=== PATIENT | female | born 1980 | race Caucasian/White ===

== ENCOUNTER 2016-11-24 09:00 | Emergency (ER) | payer MEDICAID ==
[2016-11-24 09:21] VITALS: BP 126/66
[2016-11-24] MEDS ORDERED: KETOROLAC 60 MG/2 ML VIAL IM STA (09:38)
[2016-11-24] MEDS ORDERED: LIDOCAINE PATCH 5% TOP STA (09:38)
--- NOTE | 2016-11-24 09:42 | ED Physician Documentation ---
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 Review of Systems Constitutional: denies: Fever GI: reports: Abdominal Pain (mild LLQ - before back pain) : denies: Now EGA (denies, LMP just finished) Musculoskeletal: reports: Back pain Neurologic: denies: Focal weakness, Numbness Endocrine: denies: Easy bruising / bleeding Immunocompromised: denies: Immunocompromised PD PAST MEDICAL HISTORY - Past Medical History Cardiovascular: None Respiratory: None Neuro: None Endocrine/Autoimmune: None GI: None 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 HEENT: None Psych: None Musculoskeletal: None Derm: None Other Past Medical History: PID - Past Surgical History Past Surgical History: No - Present Medications Home Medications: Ambulatory Orders Medication Instructions Recorded Confirmed Cyclobenzaprine [Flexeril] 10 mg PO TID PRN #20 tablet 11/24/16 Ibuprofen [Motrin] 400 mg PO Q6H PRN #30 tablet 11/24/16 Lidocaine Patch 5% [Lidoderm Patch] 1 each TOP DAILY PRN #10 patch 11/24/16 - Allergies Allergies/Adverse Reactions: Allergies Allergy/AdvReac Type Severity Reaction Status Date / Time No Known Drug Allergies Allergy Verified 08/05/13 13:37 - Social History Does the pt smoke?: No Smoking Status: Never smoker Does the pt drink ETOH?: Yes Does the pt have substance abuse?: No - POLST Patient has POLST: No PD ED PE NORMAL - Vitals Vital signs reviewed: Yes - Cardiac Cardiac: RRR - Respiratory Respiratory: No respiratory distress - Abdomen Abdomen: Soft, Non tender - Back Back: Other (no focal bony swelling warmth of TTP, soft tissue TTP to mid upper L spine with limited ROM 2/2 same) - Neuro Neuro: No motor deficit (hip flex knee ext foot dorsi plantar and great toe ext 5/5 neg SLR, denies saddle anesthesia, nl sensation, patellar DTR 2/4, no clonus ), No sensory deficit Results - Vitals Vitals: Vital Signs - 24 hr 11/24/16 09:09 Temperature 36.9 C Heart Rate 78 Respiratory 16 Rate Blood Pressure 126/66 O2 Saturation 98 Oxygen O2 Source Room air PD MEDICAL DECISION MAKING - ED course ED course: muscular back pain no focal neuro no red flags will tx symptomatically Departure - Departure Disposition: 01 Home, Self Care Clinical Impression: Back pain Qualifiers: Back pain location: low back pain Chronicity: acute Back pain laterality: midline Sciatica presence: without sciatica Qualified Code(s): M54.5 - Low back pain Condition: Good Instructions: ED Low Back Pain Injury Prescriptions: Cyclobenzaprine [Flexeril] 10 mg PO TID PRN #20 tablet PRN Reason: Spasms Ibuprofen [Motrin] 400 mg PO Q6H PRN #30 tablet PRN Reason: Pain Lidocaine Patch 5% [Lidoderm Patch] 1 each TOP DAILY PRN #10 patch PRN Reason: Pain Forms: Activity restrictions
[2016-11-24] MEDS ORDERED: LIDOCAINE PATCH 5% TOP ONE (09:46)
[2016-11-24] MEDS ORDERED: KETOROLAC 60 MG/2 ML VIAL ONE (09:46)
== END 2016-11-24 09:50 | disposition home or self-care (01) ==
LOC: ED 09:00
DX: M54.5 Low back pain (principal)
CPT/HCPCS: 96372; 99283; A9270

== ENCOUNTER 2016-12-06 08:31 | Emergency (ER) | payer MEDICAID ==
[2016-12-06 08:41] VITALS: BP 124/74
--- NOTE | 2016-12-06 10:12 | ED Physician Documentation ---
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 HEENT: None Psych: None Musculoskeletal: None Derm: None - Past Surgical History Past Surgical History: No - Present Medications Home Medications: Ambulatory Orders Medication Instructions Recorded Confirmed No Known Home Medications [No 12/06/16 12/06/16 Known Home Medications] - Allergies Allergies/Adverse Reactions: Allergies Allergy/AdvReac Type Severity Reaction Status Date / Time No Known Drug Allergies Allergy Verified 08/05/13 13:37 - Social History Does the pt smoke?: No Smoking Status: Never smoker Does the pt drink ETOH?: Yes Does the pt have substance abuse?: No - POLST Patient has POLST: No PD ED PE NORMAL - Vitals Vital signs reviewed: Yes (Normal) - General General: No acute distress, Well developed/nourished - HEENT HEENT: Atraumatic, PERRL - Respiratory Respiratory: No respiratory distress - Back Back: No CVA TTP, No spinal TTP, Other (There is good musculature to the paraspinous muscles bilaterally.) - Derm Derm: Normal color, Warm and dry, No rash - Extremities Extremities: No deformity, No edema - Neuro Neuro: No motor deficit, No sensory deficit - Psych Psych: Normal mood, Normal affect Results - Vitals Vitals: Vital Signs - 24 hr 12/06/16 08:38 Temperature 36.8 C Heart Rate 94 Respiratory 18 Rate Blood Pressure 124/74 O2 Saturation 100 Oxygen O2 Source Room air PD MEDICAL DECISION MAKING - ED course Complexity details: considered differential, d/w patient ED course: 36-year-old female with improvement in her back pain once a note to return back to work and this is appropriate. 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 Departure - Departure Disposition: 01 Home, Self Care Clinical Impression: Back pain Qualifiers: Back pain location: low back pain Chronicity: unspecified Back pain laterality : left Sciatica presence: without sciatica Qualified Code(s): M54.5 - Low back pain Instructions: Exercises Back Lower Back Stretch Follow-Up: [facility] [Provider Group] Forms: Activity restrictions
== END 2016-12-06 10:18 | disposition home or self-care (01) ==
LOC: ED 08:31
DX: M54.5 Low back pain (principal)
CPT/HCPCS: 99283

== ENCOUNTER 2023-06-22 18:57 | Emergency (ER) | payer MEDICAID, OTHER ==
[2023-06-22 19:27] VITALS: O2SAT 98
[2023-06-22 19:57] LABS: BASOPHILS % (AUTO) 0.4 %; EOSINOPHILS # (AUTO) 0.1 10^3/uL (0.0-0.7); EOSINOPHILS % (AUTO) 1.3 %; HCT - HEMATOCRIT 36.2 % (37.0-47.0); HGB - HEMOGLOBIN 10.6 g/dL (12.0-16.0); LYMPHOCYTES # (AUTO) 1.9 10^3/uL (1.5-3.5); LYMPHOCYTES % (AUTO) 18.6 %; MEAN CORPUSCULAR HEMOGLOBIN 23.1 pg (27.0-31.0); MEAN CORPUSCULAR HGB CONC 29.3 g/dL (32.0-36.0); MEAN CORPUSCULAR VOLUME 78.9 fL (81.0-99.0); MEAN PLATELET VOLUME 9.7 fL (7.9-10.8); MONOCYTES # (AUTO) 0.7 10^3/uL (0.0-1.0); MONOCYTES % (AUTO) 6.4 %; NEUTROPHILS # (AUTO) 7.6 10^3/uL (1.5-6.6); NEUTROPHILS % (AUTO) 73.1 %; PLT - PLATELET COUNT 630 10^3/uL (130-450); RED BLOOD COUNT 4.59 10^6/uL (4.20-5.40); RED CELL DISTRIBUTION WIDTH 23.5 % (12.0-15.0); WHITE BLOOD COUNT 10.5 x10^3/uL (4.8-10.8)
[2023-06-22 20:20] LABS: CALCIUM 9.8 mg/dL (8.5-10.3); CREATININE 0.7 mg/dL (0.6-1.3); POTASSIUM 3.9 mmol/L (3.5-4.5)
[2023-06-22 20:50] LABS: PLATELET ESTIMATE, MANUAL INCREASED (>450,000) (NORMAL); PLATELET MORPHOLOGY NORMAL APPEARANCE (NORMAL); SLIDE REVIEW? Indicated
--- NOTE | 2023-06-22 21:10 | ED Physician Documentation ---
History of Present Illness - Stated complaint Stated Complaint: SOA/DIZZY - Chief complaint Chief Complaint: General - History obtained from History obtained from: Patient - Additonal information Additional information: 43yF with pmh anemia, mental health issues, p/w weakness, malaise X few weeks with dizziness and intermittent soa. patient was speaking with her psychiatrist who recommended she come in to have hb checked since she has hx of iron deficiency anemia and just had heavy menses. denies fever, cp, vomiting, diarrhea, rectal bleeding. 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 HEENT: None Psych: None Musculoskeletal: None Derm: None - Past Surgical History Past Surgical History: No - Present Medications Home Medications: Ambulatory Orders Medication Instructions Recorded Confirmed ARIPiprazole [Abilify] 5 mg PO DAILY 06/22/23 06/22/23 Ferrous Gluconate [Fergon] 324 mg PO BID 06/22/23 06/22/23 buPROPion HCL [Bupropion HCl] 100 mg PO DAILY 06/22/23 06/22/23 - Allergies Allergies/Adverse Reactions: Allergies Allergy/AdvReac Type Severity Reaction Status Date / Time pineapple Allergy Itching Verified 06/22/23 19:26 - Social History Does the pt smoke?: No Smoking Status: Never smoker Does the pt drink ETOH?: Yes Does the pt have substance abuse?: No - Immunizations Immunizations are current?: Yes - POLST Patient has POLST: No PD ED PE NORMAL - Vitals Vital signs reviewed: Yes - General General: Alert and oriented X 3, No acute distress, Well developed/nourished - HEENT HEENT: Atraumatic, PERRL, EOMI, Moist mucous membranes, Pharynx benign - Neck Neck: Supple, no meningeal sign - Cardiac Cardiac: RRR - Respiratory Respiratory: No respiratory distress, Clear bilaterally - Abdomen Abdomen: Non tender, Non distended - Rectal Rectal: Pt declined Results - Vitals Vitals: Vital Signs - 24 hr 06/22/23 19:23 Temperature 36.8 C Heart Rate 80 Respiratory 19 Rate Blood Pressure 149/91 H O2 Saturation 98 Oxygen O2 Source Room air - Labs Labs: Laboratory Tests 06/22/23 06/22/23 19:38 19:38 WBC 10.5 RBC 4.59 Hgb 10.6 L Hct 36.2 L MCV 78.9 L MCH 23.1 L MCHC 29.3 L RDW 23.5 H Plt Count 630 H MPV 9.7 Neut # (Auto) 7.6 H Lymph # (Auto) 1.9 [place] # (Auto) 0.7 Eos # (Auto) 0.1 Baso # (Auto) 0.0 Absolute Nucleated RBC 0.00 Nucleated RBC % 0.0 Manual Slide Review Indicated Platelet Estimate INCREASED (>450,000) Platelet Morphology NORMAL APPEARANCE RBC Morph Micro Appear 1+ OVALOCYTES Sodium 138 Potassium 3.9 Chloride 104 Carbon Dioxide 29 Anion Gap 5.0 L BUN 13 Creatinine 0.7 Estimated GFR (MDRD) 92 Glucose 89 Calcium 9.8 PD Medical Decision Making - ED course ED course: 43yF p/w weakness, found to have mild anemia with hb 10.6. she states she has heavy menses and is having her copper iud removed. patient is well appearing with normal vitals. return precautions given. plan to f/u with hematology and pcp. Departure - Departure Disposition: 01 Home, Self Care Clinical Impression: Anemia, Thrombocytosis, Weakness Condition: Stable Instructions: Anemia Follow-Up: MARJORIE DHILLON MD [Physician No Access] - Comments: You were seen in the emergency department for medical check. Your hemoglobin was 10.6 and your platelets were 630. Please follow-up with your primary care provider and hematology and return to the emergency department if you have any new or worsening symptoms or other concerns. Forms: PCP List
[2023-06-22 21:18] VITALS: BP 130/88
== END 2023-06-22 21:15 | disposition home or self-care (01) ==
LOC: ED 18:57
DX: D64.9 Anemia, unspecified (principal); D75.839 Thrombocytosis, unspecified; R53.1 Weakness; Z79.899 Other long term (current) drug therapy
CPT/HCPCS: 36415; 80048; 85025; 99283